=== PATIENT | male | born 1980 | race Caucasian/White ===

== ENCOUNTER 2019-06-14 11:21 | Emergency (ER) | payer BC ==
[~2019-06-14] VITALS: Ht 180.3 cm; Wt 65.5 kg
[2019-06-14 11:25] VITALS: BP 149/68; TEMP 96.9
[2019-06-14] MEDS ORDERED: CEPHALEXIN500 M1 PO (13:12)
[2019-06-14 13:20] VITALS: PULSE 88
== END 2019-06-14 13:20 | disposition home or self-care (01) ==
LOC: COL.ER 11:21
DX: S61.412A Laceration without foreign body of left hand, initial encounter (principal); Z23 Encounter for immunization; W27.8XXA Contact with other nonpowered hand tool, initial encounter; Y92.009 Unspecified place in unspecified non-institutional (private) residence as the place of occurrence of the external cause